=== PATIENT | male | born 1945 | race African-American/Black ===

== ENCOUNTER 2024-10-16 09:18 | Inpatient (IN) | payer OTHER ==
[~2024-10-16] VITALS: Ht 185.4 cm; Wt 82.2 kg
[2024-10-16] MEDS: MORPHINE SULFATE 4 MG/ML INJ (FOR IV/IM USE) IV STA (09:56)
[2024-10-16] MEDS: ONDANSETRON HCL 4MG/2ML INJ IV STA (09:56)
[2024-10-16 10:05] LABS: BASOPHILS % 0.2 % (0.0-2.0); EOSINOPHILS % 0.1 % (0.0-5.0); HEMATOCRIT. 43.4 % (42.0-52.0); HEMOGLOBIN. 14.6 g/dL (14.0-18.0); LYMPHOCYTES % 12.2 % (20.0-50.0); MEAN CORPUSCULAR HEMOGLOBIN 30.7 pg (28.0-32.0); MEAN CORPUSCULAR HGB CONC 33.7 g/dL (31.0-37.0); MEAN CORPUSCULAR VOLUME 91.1 fL (80.0-94.0); MEAN PLATELET VOLUME 10.4 fl (7.4-10.4); MONOCYTES % 5.7 % (2.0-8.0); NEUTROPHILS % 81.8 % (40.0-76.0); PLATELET 163 x1000/uL (130-400); RED BLOOD CELL COUNT 4.76 mill/uL (4.7-6.1); RED CELL DISTRIBUTION WIDTH 13.6 % (11.6-14.6); WHITE BLOOD COUNT 7.2 x1000/uL (4.5-11.0)
[2024-10-16 10:21] LABS: CHLORIDE 101 mEq/L (98-107); POTASSIUM 3.8 mEq/L (3.5-5.1); SODIUM 140 mEq/L (136-145)
[2024-10-16 10:22] LABS: CARBON DIOXIDE 29 mEq/L (21-32)
[2024-10-16 10:27] LABS: GLUCOSE 114 mg/dL (70-105); UREA NITROGEN BLOOD 10 mg/dL (9-23)
[2024-10-16 10:28] LABS: TROPONIN I HIGH SENSITIVITY 18 ng/L (3.0-53)
[2024-10-16 14:00] VITALS: BP 121/62; PULSE 55; RESP 13; TEMP 36.9; O2SAT 97
[2024-10-16 14:07] VITALS: BP 121/62; PULSE 55; RESP 17; TEMP 36.8
[2024-10-16] MEDS ORDERED: LOSA25TA26 MT (14:59)
[2024-10-16] MEDS ORDERED: SIMV10TA97 MT (14:59)
[2024-10-16] MEDS ORDERED: HYDR12.54 MT (14:59)
[2024-10-16] MEDS ORDERED: TAMS-11 PO (14:59)
[2024-10-16] MEDS ORDERED: FINA5TAB11 MT (14:59)
[2024-10-16] MEDS ORDERED: MEMA5TAB16 MT (14:59)
[2024-10-16] MEDS ORDERED: DONE-53 PO (14:59)
[2024-10-16] MEDS ORDERED: ONDANSETRON HCL 4MG/2ML INJ IV PRN (15:00)
[2024-10-16] MEDS ORDERED: IPRATROPIUM/ALBUTEROL 0.5-3(2.5)MG/3ML NEB NEB PRN (15:00)
[2024-10-16] MEDS ORDERED: ACETAMINOPHEN 325MG TABLET PO PRN (15:00)
[2024-10-16] MEDS: HYDROCODONE/ACETAMINOPHEN 5/325MG TABLET PO PRN (15:45)
[2024-10-16 16:00] VITALS: BP 130/60; PULSE 71; RESP 12; TEMP 36.4; O2SAT 96
[2024-10-16] MEDS: ASPIRIN 81MG TABLET PO SCH (16:58)
[2024-10-16 17:14] LABS: CLARITY URINE CLEAR (CLEAR); COLOR URINE DARK YELLOW (YELLOW); GLUCOSE URINE NEGATIVE (NEGATIVE); KETONES URINE NEGATIVE (NEGATIVE); LEUKOCYTE ESTERASE URINE NEGATIVE (NEGATIVE); NITRITE URINE NEGATIVE (NEGATIVE); OCCULT BLOOD URINE NEGATIVE (NEGATIVE); PROTEIN URINE 1+ (NEGATIVE); SPECIFIC GRAVITY URINE 1.027 (1.005-1.030)
[2024-10-16 17:27] LABS: *AMPHETAMINES SCREEN URINE NEGATIVE (NEGATIVE); *BARBITURATES SCREEN URINE NEGATIVE (NEGATIVE); *BENZODIAZEPINES SCREEN URINE NEGATIVE (NEGATIVE)
[2024-10-16 17:28] LABS: *COCAINE SCREEN URINE NEGATIVE (NEGATIVE); CANNABINOID URINE SCREEN NEGATIVE (NEGATIVE); ECSTASY MDMA SCREEN URINE NEGATIVE (NEGATIVE); METHADONE URINE SCREEN NEGATIVE (NEGATIVE); OPIATES URINE SCREEN PRESUMPTIVE POSITIVE (NEGATIVE); PHENCYCLIDINE URINE SCREEN NEGATIVE (NEGATIVE)
[2024-10-16] MEDS: ENOXAPARIN 80MG/0.8ML SYR SUBCUT NR (17:41)
[2024-10-16 17:45] LABS: BACTERIA URINE NONE SEEN; RBC URINE 0-2 /hpf (0-2); WBC URINE NONE SEEN /hpf (0-2)
[2024-10-16 20:00] VITALS: BP 128/58; PULSE 54; RESP 18; TEMP 36.4; O2SAT 96
[2024-10-16] MEDS: ATORVASTATIN CALCIUM 40MG TABLET PO SCH (20:53)
[2024-10-16] MEDS ORDERED: ENOXAPARIN 40MG/0.4ML SYR SUBCUT SCH (21:00)
[2024-10-17] VITALS: BP 149/67; PULSE 53; RESP 12; TEMP 36.2; O2SAT 96
[2024-10-17 00:34] LABS: TROPONIN I HIGH SENSITIVITY 46 ng/L (3.0-53)
[2024-10-17 04:00] VITALS: BP 152/72; PULSE 55; RESP 14; TEMP 36.4; O2SAT 99
[2024-10-17 07:48] LABS: CHLORIDE 101 mEq/L (98-107); SODIUM 140 mEq/L (136-145)
[2024-10-17 07:49] LABS: CALCIUM 10.1 mg/dL (8.7-10.4); CARBON DIOXIDE 30 mEq/L (21-32)
[2024-10-17 07:52] LABS: BASOPHILS % 0.1 % (0.0-2.0); EOSINOPHILS % 0.2 % (0.0-5.0); HEMATOCRIT. 40.6 % (42.0-52.0); HEMOGLOBIN. 13.6 g/dL (14.0-18.0); LYMPHOCYTES % 19.5 % (20.0-50.0); MEAN CORPUSCULAR HGB CONC 33.5 g/dL (31.0-37.0); MEAN CORPUSCULAR VOLUME 89.5 fL (80.0-94.0); MONOCYTES % 9.4 % (2.0-8.0); NEUTROPHILS % 70.8 % (40.0-76.0); PLATELET 147 x1000/uL (130-400); RED BLOOD CELL COUNT 4.54 mill/uL (4.7-6.1); RED CELL DISTRIBUTION WIDTH 13.3 % (11.6-14.6); WHITE BLOOD COUNT 4.8 x1000/uL (4.5-11.0)
[2024-10-17 07:53] LABS: INR 1.1; PROTHROMBIN TIME 11.4 sec (9.6-11.0)
[2024-10-17 07:54] LABS: GLUCOSE 89 mg/dL (70-105); UREA NITROGEN BLOOD 11 mg/dL (9-23)
[2024-10-17 07:55] LABS: TROPONIN I HIGH SENSITIVITY 36 ng/L (3.0-53)
[2024-10-17 08:00] VITALS: BP 155/65; PULSE 53; RESP 13; TEMP 36.9; O2SAT 97
[2024-10-17] MEDS: PANTOPRAZOLE SODIUM 40 MG/VIAL IV SCH (08:23)
[2024-10-17] MEDS: ENOXAPARIN 80MG/0.8ML SYR SUBCUT SCH (10:00)
[2024-10-17] MEDS ORDERED: VERAPAMIL HCL 2.5 MG/1 ML 2ML VIAL IV ONE (11:53)
[2024-10-17] MEDS ORDERED: LIDOCAINE HCL 1% 20ML VIAL ONE (11:53)
[2024-10-17] MEDS ORDERED: MIDAZOLAM HCL 2 MG/2 ML VIAL ONE ×2 (11:53→12:47)
[2024-10-17] MEDS ORDERED: IODIXANOL 320MG/ML 100 ML BOTTLE IV ONE (11:54)
[2024-10-17] MEDS ORDERED: HEPARIN 1000 UNITS/ML 10ML ONE (11:54)
[2024-10-17] MEDS ORDERED: FENTANYL CITRATE/PF 50MCG/ML 2ML VIAL ONE ×2 (11:54→12:47)
[2024-10-17] MEDS: CLONIDINE 0.1MG TABLET PO PRN (11:55)
[2024-10-17 12:00] VITALS: BP 172/93; PULSE 59; RESP 18; TEMP 36.9; O2SAT 96
[2024-10-17] MEDS ORDERED: DIPHENHYDRAMINE 50MG/ML VIAL ONE (12:47)
[2024-10-17] MEDS ORDERED: ATROPINE SULFATE 1MG/10ML SYR IV PRN (14:00)
[2024-10-17] MEDS ORDERED: ACETAMINOPHEN 325MG TABLET PO PRN (14:00)
[2024-10-17 16:00] VITALS: BP 141/115; PULSE 67; RESP 19; TEMP 36.7; O2SAT 98
[2024-10-17] MEDS ORDERED: ASPI-1160 PO (18:21)
[2024-10-17] MEDS ORDERED: LIP40 PO (18:21)
[2024-10-17 20:00] VITALS: BP 142/60; PULSE 59; RESP 17; TEMP 36.8; O2SAT 95
[2024-10-17] MEDS: ISOSORBIDE MONONITRATE 30MG TABLET SR 24HR PO SCH (23:00)
[2024-10-18] VITALS: BP 139/61; PULSE 54; RESP 17; TEMP 36.6; O2SAT 99
[2024-10-18 03:17] VITALS: BP 139/61; PULSE 54; TEMP 97.8; O2SAT 99
[2024-10-18 04:00] VITALS: BP 175/69; PULSE 58; RESP 18; TEMP 36.4; O2SAT 97
[2024-10-18 08:00] VITALS: BP 147/98; PULSE 67; RESP 15; TEMP 36.7; O2SAT 98
[2024-10-18 08:00] LABS: BASOPHILS % 0.2 % (0.0-2.0); EOSINOPHILS % 0.4 % (0.0-5.0); HEMATOCRIT. 42.6 % (42.0-52.0); HEMOGLOBIN. 13.9 g/dL (14.0-18.0); LYMPHOCYTES % 20.9 % (20.0-50.0); MEAN CORPUSCULAR HEMOGLOBIN 29.5 pg (28.0-32.0); MEAN CORPUSCULAR HGB CONC 32.6 g/dL (31.0-37.0); MEAN CORPUSCULAR VOLUME 90.5 fL (80.0-94.0); MEAN PLATELET VOLUME 10.1 fl (7.4-10.4); NEUTROPHILS % 67.5 % (40.0-76.0); PLATELET 148 x1000/uL (130-400); RED BLOOD CELL COUNT 4.71 mill/uL (4.7-6.1); RED CELL DISTRIBUTION WIDTH 13.6 % (11.6-14.6); WHITE BLOOD COUNT 5.3 x1000/uL (4.5-11.0)
[2024-10-18] MEDS ORDERED: APIX5TAB MT (08:06)
[2024-10-18 08:16] LABS: CHLORIDE 102 mEq/L (98-107); POTASSIUM 3.9 mEq/L (3.5-5.1); SODIUM 142 mEq/L (136-145)
[2024-10-18 08:17] LABS: CALCIUM 9.8 mg/dL (8.7-10.4); CARBON DIOXIDE 28 mEq/L (21-32)
[2024-10-18 08:22] LABS: CREATININE 0.9 mg/dL (0.6-1.3); GLUCOSE 87 mg/dL (70-105); UREA NITROGEN BLOOD 16 mg/dL (9-23)
[2024-10-18 09:03] VITALS: PULSE 66
== END 2024-10-18 12:51 | disposition home or self-care (01) | DRG 287 ==
LOC: ER 09:18 → 3WST 12:44 → EDBEDREQ 12:58 → EDBEDREQTM 12:58
PROVIDERS: ADMIT Internal Medicine; ATTEND Internal Medicine
PROC: 4A023N7 Measurement of Cardiac Sampling and Pressure, Left Heart, Percutaneous Approach (ICD-10-PCS; principal; 2024-10-17)
PROC: B211YZZ Fluoroscopy of Multiple Coronary Arteries using Other Contrast (ICD-10-PCS; 2024-10-17)
DX: I25.110 Atherosclerotic heart disease of native coronary artery with unstable angina pectoris (principal); J98.11 Atelectasis; I48.0 Paroxysmal atrial fibrillation; E78.5 Hyperlipidemia, unspecified; I10 Essential (primary) hypertension; K21.9 Gastro-esophageal reflux disease without esophagitis; F03.90 Unspecified dementia, unspecified severity, without behavioral disturbance, psychotic disturbance, mood disturbance, and anxiety; N40.0 Benign prostatic hyperplasia without lower urinary tract symptoms; Z82.49 Family history of ischemic heart disease and other diseases of the circulatory system
CPT/HCPCS: 36415; 71045; 80048; 80305; 81003; 83880; 84484; 85025; 93005; 93306; 93458; 93970; 99285; A4606; C1769; C1887; C1893; J1200; J1644; J1650; J2250; J2270; J2405; J2470; J3010; J3490; Q9967